=== PATIENT | male | born 1990 | race Caucasian/White ===

== ENCOUNTER 2023-06-18 14:25 | Outpatient (OUT) | payer SELFPAY ==
[2023-06-19 04:12] LABS: Testosterone 100 ng/dL (264-916)
== END 2023-06-18 14:26 | disposition home or self-care (01) ==
LOC: LAB 14:27
PROVIDERS: PCP Family Medicine; Visit Provider Family Medicine
DX: Z00.00 Encounter for general adult medical examination without abnormal findings (principal)
CPT/HCPCS: 36415; 84403